=== PATIENT | female | born 1955 | race Caucasian/White ===

== ENCOUNTER 2023-10-10 10:33 | Emergency (ER) | payer BC ==
[2023-10-10] MEDS ORDERED: ACET/COD 300 MG/30 MG STARTER PACK 6 TAB BTL PO ONE (12:31)
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
== END 2023-10-10 12:40 ==
LOC: EC 10:33
CPT/HCPCS: 99283